=== PATIENT | male | born 1990 | race Caucasian/White ===

== ENCOUNTER 2017-04-16 05:27 | Day surgery (SDC) | payer OTHER ==
[~2017-04-16] VITALS: Ht 188 cm; Wt 98.0 kg
--- NOTE | ~2017-04-16 | O ---
[address] [address] OPERATIVE REPORT Name: MEJIA SCOTTJINA Room #: [facility].#: [id number] Admission: 04/16/17 Attend Phys: Edy Tavarez MD Discharge: 04/16/17 Date of : 89 Report #: [id number] THIS REPORT FOR: //name// CC: PRASANTH physician/PCP Edy Tavarez DATE OF SERVICE: 04/16/2017 SERVICE: Orthopedics. FACILITY: [facility]. SURGEON: dEy Tavarez MD FOOT DOCTOR: None. PREOPERATIVE DIAGNOSES: 1. Right hip pain. 2. Right hip femoroacetabular impingement, combined type. 3. Right hip labral tear. POSTOPERATIVE DIAGNOSES: 1. Right hip pain. 2. Extraarticular right hip subspine impingement. 3. Right hip Cam impingement. 4. Right hip labral tear. 5. Right hip acetabular chondromalacia. PROCEDURE: 1. Right hip arthroscopic labral repair. 2. Right hip arthroscopic Cam osteochondroplasty. 3. Right hip arthroscopic extraarticular subspine acetabuloplasty. COMPLICATIONS: None. DRAINS: None. SPECIMENS: None. ESTIMATED BLOOD LOSS: 5 mL. FINDINGS: 1. Dexter CinchLock suture anchor x 4 to repair labrum. 2. Partial thickness flap tear of the acetabular articular cartilage, approximately 50-75% thickness without any exposed bone measuring 6 mm in radial length x approximately 40 mm in width. [address] [address] OPERATIVE REPORT Name: GUERO SCOTT Room #: [facility].#: [id number] Admission: 04/16/17 Attend Phys: Edy Tavarez MD Discharge: 04/16/17 Date of : [birth year] Report #: [id number] 3. Prominent subspine bone, treated with acetabuloplasty, extraarticular, with bur. 4. Moderate size Cam deformity, treated with Cam osteoplasty under fluoroscopic and arthroscopic visualization. 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 He had treated both with conservative measures including rest, modalities, therapy, medications. These had failed conservative measures. He underwent left hip arthroscopic management of his femoroacetabular impingement approximately 3 months ago and had an excellent result from this and therefore wished to move forward as he was having progressive persistent pain in the right hip despite working on the rehab on the right side that he continued to do for his left hip postoperatively. He had preoperative imaging, which was suggestive of a combined type impingement with a prominent anterior inferior iliac spine consistent with extraarticular subspine impingement, which yielded the crossover sign on his AP pelvis and then the presence of a Cam deformity. The alpha angle measured approximately 70 degrees. He had a labral tear on his MRI and had intact articular cartilage as best as we could tell reading the MRI. His [place] grade was 0. The risks, benefits, alternatives and indications of surgery were discussed with him in detail. Risks include but not limited to pain, bleeding, infection, injury to nerves or blood vessels, persistent pain despite surgical intervention, failure of any repairs, reconstruction, progression of any preexisting chondral injury, stiffness, need for further surgery as well as complications related to anesthesia such as stroke, heart attack, pulmonary complications, thromboembolic disease and . Despite these risks, he wished to proceed. PROCEDURE IN DETAIL: After the right leg was correctly identified as the operative extremity, the patient underwent placement of a single shot regional nerve block. He was then taken to the operating room and placed supine on operating table. General endotracheal anesthesia was induced without complication. He was padded appropriately. Prophylactic antibiotics were administered at appropriate time. Ski boots were applied to the bilateral lower extremities and then I mapped out the femoral head and neck junction with the fluoroscopy while he was asleep prior to initiating the procedure. He had a prominent Cam bump that extended over the superior lateral shoulder of the hip that was most visible in the beginning in internal rotation and therefore was at about the -10 degree position, extending all the way to about the 70 degree position. The max alpha angle was between 70-75 degrees. Right leg was then prepped and draped in standard sterile fashion. A time-out procedure was performed. Traction was applied to the right lower extremity. Standard anterolateral [address] [address] OPERATIVE REPORT Name: GUERO SCOTT Room #: [facility] Andrea#: [id number] Admission: 04/16/17 Attend Phys: Edy Tavarez MD Discharge: 04/16/17 Date of : 89 Report #: [id number] viewing portal, followed by mid anterior working portal was established in a typical fashion. Transverse capsulotomy was performed. Anteromedially, he had scarring of the labrum to the capsule and so I dissected this free, so as to differentiate the 2 planes and then resected the inflamed edge in this location. He had a large labral tear and adjacent chondral labral disruption. The labral tear was full thickness. There was a flap tear of the cartilage, which was later seen to be approximately 50-75% in thickness and was treated with resection with the shaver to a stable parameter after the labral repair was completed. The capsule was reflected off the dorsal side of the labrum allowing access to the subspine region where there was a bony protuberance present correlated directly with some of his labral pathology and so the bur was used to perform an extraarticular acetabuloplasty in this region recessing the anterior inferior iliac spine to appropriate position. The bone was quite dense in this location suggestive of impingement. The bur was used to abrade the acetabular rim in preparation for the labral re-fixation as well. I did make a small window on the dorsal side of the capsule to allow access to the superior portion of the inferior iliac spine to complete contouring of the AIIS. After the acetabular preparation was completed, the acetabular labral repair was performed, working from anterior medial around laterally. A total of four anchors were utilized, the first 3 were using simple cerclage sutures and the fourth one a diagonal mattress suture to provide good compression around the corner. The labrum was then probed and found to be stable and then I used the shaver to complete the chondroplasty on the acetabulum. I did have to initiate the Cam osteoplasty in traction due to the proximal position of it and the fact that it went over the shoulder and so this was begun with the hip in extension and internal rotation on traction and this is the reason for the additional traction time, which was approximately 1 hour and 21 minutes. The scope was placed in the anteromedial portal, the bur in the anterolateral portal and then a traction stitch was placed and then the capsulotomy was extended slightly down the neck in a T fashion, allowing access to the Cam lesion and then the bur was used to perform the Cam osteochondroplasty under arthroscopic visualization and then brought the C-arm in to assess the resection at multiple planes and found additional bone on the distal portion of the neck over the lateral side that needed further contouring. I placed the instruments back in the hip and completed that portion of the Cam osteoplasty and then final x-rays showed adequate resection. At this point, then the bony debris was lavaged out of the hip. Note that, the majority of the more anterior portion of the Cam osteoplasty was performed off of traction as well as in flexion and dynamic range of motion was performed and adequate resection was felt to be achieved and then the capsule was closed with a total of four #2 Vicryl sutures. The arthroscopic effusion was drained. The instruments were removed. The portal sites were closed with a deep, followed by superficial 3-[address] [address] OPERATIVE REPORT Name: GUERO SCOTT Room #: [facility]..#: [id number] Admission: 04/16/17 Attend Phys: Edy Tavarez MD Discharge: 04/16/17 Date of : 89 Report #: [id number] stitches. Sterile dressing was applied. The patient was awakened from anesthesia and taken to recovery room in stable condition. There were no complications. All counts were correct. <ELECTRONICALLY SIGNED> By: Edy Tavarez MD 04/23/17 1536 [id number] 1735 Edy Tavarez MD /nt
[~2017-04-16 05:27] MED LIST: MULTI VITAMIN1 EACH PO; VYVANSE50 M1 PO
[2017-04-16 07:58] VITALS: BP 115/75
[2017-04-16 13:29] VITALS: BP 115/75
== END 2017-04-16 14:30 | disposition home or self-care (01) ==
LOC: TBA 05:27 → OR 05:27 → TBA 05:28 → OR 07:22
DX: M25.551 Pain in right hip (principal); M94.251 Chondromalacia, right hip; M24.151 Other articular cartilage disorders, right hip; S73.191A Other sprain of right hip, initial encounter; X58.XXXA Exposure to other specified factors, initial encounter; Y93.89 Activity, other specified; Y92.89 Other specified places as the place of occurrence of the external cause; Y99.8 Other external cause status; Z98.890 Other specified postprocedural states
CPT/HCPCS: 50010; 50101; 50386; 51538; 52298; 52304; 55430; 56524; 56527; 57092; 62110; 62900; 64041; 70005